=== PATIENT | female | born 1990 | race American Indian/Alaskan Native ===

== ENCOUNTER 2020-06-05 10:58 | Outpatient (CLI) | payer OTHER ==
--- NOTE | 2020-06-05 12:14 | Mammography Report ---
DIGITAL DIAGNOSTIC MAMMOGRAM WITH CAD, -- 06/05/2020 INDICATION: Patient presents for evaluation of an area of palpable concern in the left breast as well as left nipple discharge. TECHNIQUE: Digital bilateral mammographic imaging was performed. Spot compression views were obtaine d. This examination was interpreted with the benefit of Computer-aided Detection analysis. COMPARISON: Left breast ultrasound 05/26/2020 FINDINGS: Breast Density: The breasts are extremely dense, which lowers the sensitivity of mammography. There is no evidence of dominant mass, suspicious calcifications or architectural distortion in the r ight breast. Duct ectasia is noted diffusely throughout the right breast. On a background of extremel y dense breast tissue, there is more focal global asymmetric density in the upper outer quadrant of t he left breast, corresponding with the mixed echogenicity mass seen on recent left breast ultrasound. IMPRESSION: 1. On a background of extremely dense tissue, there is more focal global asymmetric density in the up per outer quadrant of the left breast, corresponding with the mixed echogenicity mass seen on recent left breast ultrasound. While this may represent an infectious or inflammatory process, this is consi dered suspicious for malignancy and ultrasound-guided biopsy is recommended. Ultrasound-guided biopsy of one of the enlarged left axillary lymph nodes is also recommended, with differential consideratio ns including reactive or metastatic nodes. Follow up recommendation: Biopsy BI-RADS Category 4: Suspicious for Malignancy. A "normal" or negative report should not discourage follow up or biopsy of a clinically significant f inding. A written summary of these findings will be mailed to the patient. The patient will be entered into a mammography reporting system which will generate a reminder letter for the patient's next appointmen t at the appropriate interval. According to the [employer], yearly mammograms are recommended starting at age 40 and continuing as long as a woman is in good health. Breast MRI is recommended for women with an elio roximately 20-25% or greater lifetime risk of breast cancer, including women with a strong family his tory of breast or ovarian cancer and women who have been treated for Hodgkin's disease. Signer Name: Jaz Vigil MD Signed: 06/05/2020 12:10 PM Workstation Name: [id number]
== END 2020-06-05 10:59 | disposition home or self-care (01) ==
LOC: MAMMO 10:58
PROVIDERS: ATTEND Advanced Practice Midwife
DX: N64.89 Other specified disorders of breast (principal); N60.02 Solitary cyst of left breast
CPT/HCPCS: 77066

== ENCOUNTER 2020-07-23 06:11 | Day surgery (SDC) | payer OTHER ==
[2020-07-22 14:07] LABS: Basophils # (Auto) 0.1 K/mm3 (0.0-0.1); Basophils % (Auto) 0.6 % (0.0-1.8); Eosinophils # (Auto) 0.2 K/mm3 (0.0-0.4); Eosinophils % (Auto) 1.5 % (0.0-4.3); Hematocrit 31.9 % (30.3-42.9); Lymphocytes # (Auto) 0.9 K/mm3 (1.2-5.4); Lymphocytes % (Auto) 8.6 % (13.4-35.0); Mean Corpuscular HGB Conc 34 % (30-34); Mean Corpuscular Volume 76 fl (79-97); Monocytes # (Auto) 0.5 K/mm3 (0.0-0.8); Platelet Count 406 K/mm3 (140-440); Red Blood Count 4.18 M/mm3 (3.65-5.03); Red Cell Distribution Width 14.5 % (13.2-15.2)
[2020-07-22 14:21] LABS: BUN/Creatinine Ratio 21; Blood Urea Nitrogen 15 mg/dL (7-17); Calcium 9.7 mg/dL (8.4-10.2); Hemolysis Index 0
[~2020-07-23 06:11] MED LIST: LACTATED RINGERS 1,000 ML IV SCH; MIDAZOLAM 2 MG/2 ML INJ IV NR; ceFAZolin/Water 2 GM/20 ML 2 GM/20 ML SYRINGE IV NR
[2020-07-23] MEDS ORDERED: BACTERIOSTATIC SODIUM CHLORIDE 0.9% 30 ML VIAL INFILTRATI ONE (06:43)
[2020-07-23] MEDS ORDERED: FAMOTIDINE 20 MG/2 ML INJ IV NR (07:27)
--- NOTE | 2020-07-23 07:27 | Anesthesia Day of Surgery ---
Anesthesia Day of Surgery - Day of Surgery Patient Examined: Yes Patient H&P Reviewed: Yes Patient is NPO: Yes
--- NOTE | 2020-07-23 07:27 | Anesthesia Consultation ---
Anesthesia Consult and Med Hx Date of service: 07/23/20 - Airway Anesthetic Teeth Evaluation: Good, Caps (#6-9) ROM Head & Neck: Adequate Mental/Hyoid Distance: Adequate Mallampati Class: Class II Intubation Access Assessment: Probably Good - Pre-Operative Health Status ASA Pre-Surgery Classification: ASA1 Proposed Anesthetic Plan: General - Central Nervous System Hx Psychiatric Problems: No - Other Systems Hx Cancer: No
[2020-07-23] MEDS ORDERED: ONDANSETRON 4 MG/2 ML INJ ONE (07:34)
[2020-07-23] MEDS ORDERED: fentaNYL 100 MCG/2 ML INJ ONE (07:34)
[2020-07-23] MEDS ORDERED: LIDOCAINE MPF (2%) 20 MG/1 ML VIAL 5 ML ONE (07:34)
[2020-07-23] MEDS ORDERED: propofoL 200 MG/20 ML VIAL IV ONE (07:34)
[2020-07-23] MEDS ORDERED: dexAMETHasone 20 MG/5 ML VIAL ONE (07:34)
[2020-07-23] MEDS ORDERED: ONDANSETRON 4 MG/2 ML INJ IV PRN (07:39)
[2020-07-23] MEDS ORDERED: VANCOMYCIN 1000 MG INJ ONE (08:25)
[2020-07-23] MEDS ORDERED: SODIUM CHLORIDE 0.9% 1000 ML 1,000 ML ONE (08:25)
[2020-07-23] MEDS ORDERED: SODIUM CHLORIDE 0.9% 250ML 250 ML ONE (08:26)
[2020-07-23] MEDS ORDERED: NEOMY 40 MG/POLYMYXIN B 200,000 UNITS/ML (GU) AMPULE IR ONE ×2 (08:37→08:44)
[2020-07-23] MEDS ORDERED: SODIUM CHLORIDE 0.9% IRR 1,500 ML BOTTLE IR ONE (08:44)
[2020-07-23] MEDS ORDERED: LACTATED RINGERS 1,000 ML ONE (08:49)
--- NOTE | 2020-07-23 09:14 | Operative Report ---
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 Postoperative diagnosis: Same Procedure: Left breast multiple abscesses incision and drainage and drain placement Surgeon: Kimmy Arce MD Anesthesia: General Findings: Multiple abscess sites at 3, 4 o'clock positions with incision and drainage performed and [place] placement; drainage of at least 150 cc pus Complications: None Drains: One 1/4 inch Bonita drains EBL: Minimal Disposition: PACU in good condition Indications for operative procedure: This is a 30-year-old premenopausal -[place] lady with left breast granulomatous mastitis seen recently in consultation for evaluation for a left breast mass on 06/19/2020. She reported a one-month history of a palpable left breast lump with associated tenderness. O utside left breast ultrasound May 26, 2020 findings of left lateral mixed echogenic mass from the 12 to 4 o'clock positions measuring at least 11 x 5 cm and multiple enlarged axillary lymph nodes largest of 1.8 cm. Diagnostic bilateral mammogram June 05, 2020 with findings of dense breast tissue of global left upper outer quadrant asymmetry and biopsy recommended BI-RADS 4. Physical exam at consultation June 13, 2020 with left breast larger than right breast with palpable asymmetric mass in the 12-4 o'clock positions extending to the nipple areaolar complex laterally with mass measuring at least 10 x 7 cm and palpable left axillary lymphadenopathy. Ultrasound guided breast and axillary lymph node biopsy was performed same day with findings of granulomatous mastitis and negative for malignancy of both breast and axillary lymph node biopsy. She was then started on doxycycline as well as prednisone. Patient did not keep her follow-up appointments and and then was seen yesterday with findings of multiple abscess pockets from the 3 to 4 o'clock position with 50 cc of pus aspirated and recommendations for further incision and drainage under general anesthesia given the amount of area remaining to be aspirated. Patient wished to proceed with the above procedure. Procedure in detail: Patient was taken to the operating room and was laid supine. General anesthesia was administered. Multiple abscess locations were noted of the left lateral breast at the 3:00 and 4:00 positions; palpable asymmetry from the 12-3:00 positions. Palpable abscess fluctuance from the 3 to 4 o'clock position present. Drainage was present as well at the 3:00 position. Left breast with edema and mild erythema (erythema at 4:00 position). The left breast was prepped and draped in the normal sterile operative fashion. Timeout was performed. Ultrasound was used as well due to by the area of abscess location sites at the 3 and 4 o'clock positions. Hemostat was used to probe the area of active abscess location with drainage present of pus and cultures taken at the 3:00 position. Hemostat was used to probe the areas at the 3 and 4 o'clock positions to ensure that complex abscess pockets were appropriately opened up and drained. The area was appropriatly suctioned drain and ultrasound was then used with no additional areas of abscess pockets present. 150 cc of pus was aspirated and cultures sent to pathology. A counter incision was made around the 4 o'clock position with an 11 blade knife. The breast was then irrigated with antibiotic solution. Ultrasound was then used to ensure no other areas of abscess fluid pockets with none present. A quarter inch Bonita drain was then placed and appropriately sutured together. The breast was noted to be less edematous as well as less erythema and area of palpable fluctuance from the 3 to 4 o'clock position was resolved. Gauze was placed as well as ABD pad and breast binder. Hemostasis was noted. She tolerated surgery very well and was awakened from anesthesia and transported to PACU in good condition.
[2020-07-23] MEDS: HYDROmorphone 1 MG/1 ML INJ IV PRN ×3 (09:24→09:44)
--- NOTE | 2020-07-23 09:27 | Short Stay Summary ---
Short Stay Documentation Date of service: 07/23/20 - History H&P: obtained from office - Allergies and Medications Current Medications: Allergies No Known Allergies Allergy (Unverified 07/22/20 13:36) Home Medications Medication Instructions Recorded Confirmed Last Taken Type Acetaminophen/Codeine [Tylenol 1 tab PO Q4HR PRN 07/22/20 07/22/20 07/22/20 History /Codeine # 3 tab] Ibuprofen [Motrin] 800 mg PO Q8HR PRN 07/22/20 07/23/20 07/21/20 History Sulfamethoxazole/Trimethoprim 1 each PO DAILY 07/22/20 07/22/20 07/22/20 History [Bactrim DS TAB] Doxycycline Hyclate [Doxycycline 100 mg PO Q12HR #20 tab 07/23/20 Unknown Rx Hyclate TAB] Prednisone [predniSONE 10 mg 10 mg PO .TAPER #1 tab.ds.pk 07/23/20 Unknown Rx (6-Day Pack, 21 Tabs)] cephALEXin [Keflex] 500 mg PO Q12HR #20 cap 07/23/20 Unknown Rx oxyCODONE /ACETAMINOPHEN [Percocet 1 tab PO Q6HR PRN #25 tablet 07/23/20 Unknown Rx 5/325] Active Medications Famotidine (Pepcid) 20 mg IV ONCE NR Stop: 07/23/20 20:00 Last Admin: 07/23/20 07:40 Dose: 20 mg Documented by: Hydromorphone HCl (Dilaudid) 0.5 mg IV Q10MIN PRN PRN Reason: Pain , Severe (7-10) Stop: 07/23/20 23:00 Lactated Ringer's (Lactated Ringers) 1,000 mls @ 100 mls/hr IV DIRECT ARACELY Stop: 07/23/20 23:59 Last Admin: 07/23/20 06:48 Dose: 100 mls/hr Documented by: Cefazolin Sodium (Ancef/Sterile Water 2 Gm/20 Ml) 2 gm in 20 mls @ 80 mls/hr IV PREOP NR; Protocol Stop: 07/23/20 20:00 Midazolam HCl (Versed) 2 mg IV PREOP NR Stop: 07/23/20 22:00 Last Admin: 07/23/20 07:39 Dose: 2 mg Documented by: Ondansetron HCl (Zofran) 4 mg IV ONCE PRN PRN Reason: Nausea And Vomiting Stop: 07/23/20 22:00 - Brief post op/procedure progress note Date of procedure: 07/23/20 Pre-op diagnosis: Left breast granulomatous Post-op diagnosis: same Procedure: Left breast abscess incision and drainage with drain placement Anesthesia: GETA Findings: Left breast abscess aspiration of at least 150 cc Surgeon: SYED ROMO Estimated blood loss: minimal Pathology: list (cultures) Specimen disposition: to lab Condition: stable - Disposition Condition at discharge: Good Disposition: DC-01 TO HOME OR SELFCARE Short Stay Discharge Plan Activity: no restrictions, other Diet: regular Wound: keep clean and dry (wear breast binder and do not manipulate drain) Follow up with: RUTH GEORGE [Other] - 7 Days SYED ROMO MD [Staff Physician] - 7 Days Prescriptions: Doxycycline Hyclate [Doxycycline Hyclate TAB] 100 mg PO Q12HR #20 tab cephALEXin [Keflex] 500 mg PO Q12HR #20 cap oxyCODONE /ACETAMINOPHEN [Percocet 5/325] 1 tab PO Q6HR PRN #25 tablet PRN Reason: Pain Prednisone [predniSONE 10 mg (6-Day Pack, 21 Tabs)] 10 mg PO .TAPER #1 tab.ds.pk
[2020-07-23] MEDS ORDERED: KETOROLAC 30 MG/1 ML INJ ONE (09:36)
[2020-07-23] MEDS ORDERED: KETOROLAC 30 MG/1 ML INJ IV NR (09:39)
[2020-07-23] MEDS ORDERED: oxyCODONE /ACETAMINOPHEN 5-325MG TAB PO PRN (10:00)
[2020-07-23 10:23] VITALS: BP 105/64
--- NOTE | 2020-07-23 10:43 | Post Anesthesia Evaluation ---
- Post Anesthesia Evaluation Patient Participated: Yes Airway Patent: Yes Stable Respiratory Function: Yes Nausea/Vomiting: No Temp > 96.8F: Yes Pain Manageable: Yes Adequeate Hydration: Yes Anesthesia Complications: No
== END 2020-07-23 10:50 | disposition home or self-care (01) ==
LOC: OR 06:11
PROVIDERS: ATTEND Surgery
DX: N61.1 Abscess of the breast and nipple (principal); Z79.899 Other long term (current) drug therapy; Z98.890 Other specified postprocedural states; N60.82 Other benign mammary dysplasias of left breast
CPT/HCPCS: 19020; 36415; 80048; 84703; 85025; 87075; 87116; 88112; 88312; J0690; J1100; J1170; J1885; J2250; J2405; J2704; J3010; J3370; J7030; J7050; J7120